=== PATIENT | male | born 2000 | race Caucasian/White ===

== ENCOUNTER 2020-03-15 19:46 | Emergency (ER) | payer OTHER ==
[~2020-03-15] VITALS: Ht 170.2 cm; Wt 61.4 kg
[2020-03-15 19:52] VITALS: Ht 170.2 cm; Wt 61.4 kg
[2020-03-15 21:17] VITALS: BP 132/80
== END 2020-03-15 21:17 | disposition home or self-care (01) ==
LOC: D.ER 19:46
DX: S09.90XA Unspecified injury of head, initial encounter (principal); S00.81XA Abrasion of other part of head, initial encounter; W22.8XXA Striking against or struck by other objects, initial encounter; Y93.11 Activity, swimming; Y92.9 Unspecified place or not applicable; J45.909 Unspecified asthma, uncomplicated; R51 Headache; R42 Dizziness and giddiness